=== PATIENT | male | born 1980 | race American Indian/Alaskan Native ===

== ENCOUNTER 2020-06-05 12:27 | Emergency (ER) | payer MEDICARE ==
[2020-06-05 12:46] VITALS: BP 115/64
--- NOTE | 2020-06-05 13:19 | Emergency Department Report ---
- General Chief complaint: Skin Rash Stated complaint: FACIAL BREAKOUT Time Seen by Provider: 06/05/20 12:54 Source: patient Mode of arrival: Ambulatory Limitations: No Limitations - History of Present Illness Initial comments: Patient is a 40-year-old male presents emergency room complaints of a rash to the left side of his face that began 3 days ago. He states that he put alcohol on the face. He denies ever having in the past. He denies any fever, drainage, difficulty swallowing, itching. He denies any known allergies. Has a past medical history of HIV and has not been on his antivirals for 6 months due to lack of insurance. No allergies to medications. - Related Data Home Medications Medication Instructions Recorded Confirmed Last Taken Abacavir/Dolutegravir/Lamivudi 1 each PO QDAY 05/17/16 05/17/16 05/17/16 11:00 [Triumeq Tablet] Darunavir/Cobicistat (Nf) 1 each PO QDAY 05/17/16 05/17/16 05/17/16 11:00 [Prezcobix 800 mg-150 mg Tablet] Previous Rx's Medication Instructions Recorded Last Taken Type Acetaminophen/Codeine [Tylenol #3] 1 tab PO Q8H PRN #15 tablet 05/17/16 Unknown Rx Amoxicillin/K Clav Tab [Augmentin 1 tab PO Q12HR #20 tab 05/17/16 Unknown Rx 875 mg] Benzocaine [Oral Pain Relief] 9.35 gm MM Q8H #1 gel..gram. 05/17/16 Unknown Rx Chlorhexidine Mouthwash [Peridex] 118 ml MM BID #1 bottle 05/17/16 Unknown Rx Ibuprofen [Motrin] 600 mg PO Q8H PRN #30 tablet 05/17/16 Unknown Rx Mupirocin [Bactroban 2% OINT] 1 applic TP TID #1 tube 06/05/20 Unknown Rx Naproxen [EC-Naprosyn] 500 mg PO BID PRN #14 tablet. 06/05/20 Unknown Rx Valacyclovir HCl [Valacyclovir] 1,000 mg PO TID 7 Days #21 tablet 06/05/20 Unknown Rx traMADoL [Ultram 50 MG tab] 50 mg PO Q6HR PRN #10 tablet 06/05/20 Unknown Rx Allergies Allergy/AdvReac Type Severity Reaction Status Date / Time No Known Allergies Allergy Verified 06/05/20 12:41 Abscess Boil HPI - HPI Chief Complaint: Skin Rash Stated Complaint: FACIAL BREAKOUT Time Seen by Provider: 06/05/20 12:54 Home Medications: Home Medications Medication Instructions Recorded Confirmed Last Taken Abacavir/Dolutegravir/Lamivudi 1 each PO QDAY 05/17/16 05/17/16 05/17/16 11:00 [Triumeq Tablet] Darunavir/Cobicistat (Nf) 1 each PO QDAY 05/17/16 05/17/16 05/17/16 11:00 [Prezcobix 800 mg-150 mg Tablet] Previous Rx's Medication Instructions Recorded Last Taken Type Acetaminophen/Codeine [Tylenol #3] 1 tab PO Q8H PRN #15 tablet 05/17/16 Unknown Rx Amoxicillin/K Clav Tab [Augmentin 1 tab PO Q12HR #20 tab 05/17/16 Unknown Rx 875 mg] Benzocaine [Oral Pain Relief] 9.35 gm MM Q8H #1 gel..gram. 05/17/16 Unknown Rx Chlorhexidine Mouthwash [Peridex] 118 ml MM BID #1 bottle 05/17/16 Unknown Rx Ibuprofen [Motrin] 600 mg PO Q8H PRN #30 tablet 05/17/16 Unknown Rx Mupirocin [Bactroban 2% OINT] 1 applic TP TID #1 tube 06/05/20 Unknown Rx Naproxen [EC-Naprosyn] 500 mg PO BID PRN #14 tablet. 06/05/20 Unknown Rx Valacyclovir HCl [Valacyclovir] 1,000 mg PO TID 7 Days #21 tablet 06/05/20 Unknown Rx traMADoL [Ultram 50 MG tab] 50 mg PO Q6HR PRN #10 tablet 06/05/20 Unknown Rx Allergies/Adverse Reactions: Allergies Allergy/AdvReac Type Severity Reaction Status Date / Time No Known Allergies Allergy Verified 06/05/20 12:41 ED Review of Systems ROS: Stated complaint: FACIAL BREAKOUT Other details as noted in HPI Comment: All other systems reviewed and negative ED Past Medical Hx - Past Medical History Hx HIV: Yes - Surgical History Past Surgical History?: No - Social History Smoking Status: Current Every Day Smoker Substance Use Type: Alcohol - Medications Home Medications: Home Medications Medication Instructions Recorded Confirmed Last Taken Type Abacavir/Dolutegravir/Lamivudi 1 each PO QDAY 05/17/16 05/17/16 05/17/16 11:00 History [Triumeq Tablet] Acetaminophen/Codeine [Tylenol #3] 1 tab PO Q8H PRN #15 tablet 05/17/16 Unknown Rx Amoxicillin/K Clav Tab [Augmentin 1 tab PO Q12HR #20 tab 05/17/16 Unknown Rx 875 mg] Benzocaine [Oral Pain Relief] 9.35 gm MM Q8H #1 gel..gram. 05/17/16 Unknown Rx Chlorhexidine Mouthwash [Peridex] 118 ml MM BID #1 bottle 05/17/16 Unknown Rx Darunavir/Cobicistat (Nf) 1 each PO QDAY 05/17/16 05/17/16 05/17/16 11:00 History [Prezcobix 800 mg-150 mg Tablet] Ibuprofen [Motrin] 600 mg PO Q8H PRN #30 tablet 05/17/16 Unknown Rx Mupirocin [Bactroban 2% OINT] 1 applic TP TID #1 tube 06/05/20 Unknown Rx Naproxen [EC-Naprosyn] 500 mg PO BID PRN #14 tablet.dr 06/05/20 Unknown Rx Valacyclovir HCl [Valacyclovir] 1,000 mg PO TID 7 Days #21 tablet 06/05/20 Unknown Rx traMADoL [Ultram 50 MG tab] 50 mg PO Q6HR PRN #10 tablet 06/05/20 Unknown Rx ED Physical Exam - General Limitations: No Limitations General appearance: alert, in no apparent distress - Head Head exam: Present: atraumatic, normocephalic - Eye Eye exam: Present: normal appearance - ENT ENT exam: Present: mucous membranes moist - Respiratory Respiratory exam: Absent: respiratory distress, accessory muscle use - Neurological Exam Neurological exam: Present: alert, oriented X3 - Psychiatric Psychiatric exam: Present: normal affect, normal mood - Skin Skin exam: Present: other (maculopapular rash with vesicles present to the left side of the face in a dermatomal distribution, no involvement of the ear canal or TM, no involvement inside of the nose, there are a few pustules ) ED Course Vital Signs 06/05/20 12:45 Temperature 98.2 F Pulse Rate 74 Respiratory 18 Rate Blood Pressure 115/64 [Left] O2 Sat by Pulse 100 Oximetry ED Medical Decision Making - Medical Decision Making Patient is a 40-year-old male presents emergency room complaints of a rash to the left side of his face that began 3 days ago. He states that he put alcohol on the face. He denies ever having in the past. He denies any fever, drainage, difficulty swallowing, itching. He denies any known allergies. Has a past medical history of HIV and has not been on his antivirals for 6 months due to lack of insurance. No allergies to medications. vitals are normal. on exam: maculopapular rash with vesicles present to the left side of the face in a dermatomal distribution, no involvement of the ear canal or TM, no involvement inside of the nose, there are a few pustules. Examination appears consistent with shingles outbreak. There is a few small pustules which could possibly be mild secondary skin irritation, no signs of facial cellulitis or abscess. Patient given prescription for naproxen, tramadol, Valacyclovir, mupirocin ointment. Advised patient to follow-up with primary care doctor. Discussed the importance of following up with infectious disease/HIV clinic and getting back on his antivirals. Advised patient Please use medication as prescribed. Please follow-up with your primary care doctor. Please follow-up with HIV clinic/health department to get back on her antivirals. Please discuss with your primary care doctor about the shingles vaccine. Return to emergency room for any new or worsening symptoms. Critical care attestation.: If time is entered above; I have spent that time in minutes in the direct care of this critically ill patient, excluding procedure time. ED Disposition Clinical Impression: Shingles Qualifiers: Herpes zoster complications: without complications Qualified Code(s): B02.9 - Zoster without complications Disposition: DC-01 TO HOME OR SELFCARE Is pt being admited?: No Does the pt Need Aspirin: No Condition: Stable Instructions: Shingles, [id number] Additional Instructions: Please use medication as prescribed. Please follow-up with your primary care doctor. Please follow-up with HIV clinic/health department to get back on her antivirals. Please discuss with your primary care doctor about the shingles vaccine. Return to emergency room for any new or worsening symptoms. [facility] [place] [address], [place] [address] Hours: Closed ? Opens 10AM Mon [facility] [place] Address: [address], [place] [address] [facility] Address: [address], [place] [id number] [facility] Address: [address], [place] [address] [facility] Address: [address], [place] [address] Prescriptions: Mupirocin [Bactroban 2% OINT] 1 applic TP TID #1 tube Naproxen [EC-Naprosyn] 500 mg PO BID PRN #14 tablet. PRN Reason: pain traMADoL [Ultram 50 MG tab] 50 mg PO Q6HR PRN #10 tablet PRN Reason: Pain , Severe (7-10) Valacyclovir HCl [Valacyclovir] 1,000 mg PO TID 7 Days #21 tablet Referrals: ADRIANNE CABELLO MD [Staff Physician] - 3-5 Days [facility] [Provider Group] - 3-5 Days [facility], [LAB/CONTRACT] - 3-5 Days KATARINA ROUSSEAU MD [Staff Physician] - 3-5 Days [facility], [Primary Care Provider] - 3-5 Days Time of Disposition: 13:16 Print Language: URUGUAYAN
== END 2020-06-05 13:58 | disposition home or self-care (01) ==
LOC: ED 12:27
DX: B02.9 Zoster without complications (principal); F17.200 Nicotine dependence, unspecified, uncomplicated; Z21 Asymptomatic human immunodeficiency virus [HIV] infection status; Z79.2 Long term (current) use of antibiotics; Z79.899 Other long term (current) drug therapy
CPT/HCPCS: 99282

== ENCOUNTER 2020-07-04 08:19 | Emergency (ER) | payer SELFPAY ==
[2020-07-04 09:03] VITALS: BP 116/87
--- NOTE | 2020-07-04 09:16 | Emergency Department Report ---
ED Male HPI - General Chief complaint: Urogenital-Male Stated complaint: PENIS PAIN Time Seen by Provider: 07/04/20 09:11 Source: patient Mode of arrival: Ambulatory Limitations: No Limitations - History of Present Illness Initial comments: 40-year-old -[place] male that emerge department complaining of 1 week history of penile discharge of the yellowish color with some tingling and occasional burning which was earlier on in the process. Reports no fever, chills, sweats no chest pain, no palpitations. No no hematuria no testicular swelling Radiation: none Severity: mild Quality: burning, dull Consistency: constant Improves with: none Worsens with: none new medication discharge. denies: urinary retention, blood in urine, nausea/vomiting, incontinence - Related Data Sexually active: Yes Home Medications Medication Instructions Recorded Confirmed Last Taken Abacavir/Dolutegravir/Lamivudi 1 each PO QDAY 05/17/16 05/17/16 05/17/16 11:00 [Triumeq Tablet] Darunavir/Cobicistat (Nf) 1 each PO QDAY 05/17/16 05/17/16 05/17/16 11:00 [Prezcobix 800 mg-150 mg Tablet] Previous Rx's Medication Instructions Recorded Last Taken Type Acetaminophen/Codeine [Tylenol #3] 1 tab PO Q8H PRN #15 tablet 05/17/16 Unknown Rx Amoxicillin/K Clav Tab [Augmentin 1 tab PO Q12HR #20 tab 05/17/16 Unknown Rx 875 mg] Benzocaine [Oral Pain Relief] 9.35 gm MM Q8H #1 gel..gram. 05/17/16 Unknown Rx Chlorhexidine Mouthwash [Peridex] 118 ml MM BID #1 bottle 05/17/16 Unknown Rx Ibuprofen [Motrin] 600 mg PO Q8H PRN #30 tablet 05/17/16 Unknown Rx Mupirocin [Bactroban 2% OINT] 1 applic TP TID #1 tube 06/05/20 Unknown Rx Naproxen [EC-Naprosyn] 500 mg PO BID PRN #14 tablet. 06/05/20 Unknown Rx Valacyclovir HCl [Valacyclovir] 1,000 mg PO TID 7 Days #21 tablet 06/05/20 Unknown Rx traMADoL [Ultram 50 MG tab] 50 mg PO Q6HR PRN #10 tablet 06/05/20 Unknown Rx Cefixime [Suprax] 800 mg PO ONCE #2 capsule 07/04/20 Unknown Rx Doxycycline Hyclate 100 mg PO BID #14 tablet. 07/04/20 Unknown Rx Allergies Allergy/AdvReac Type Severity Reaction Status Date / Time No Known Allergies Allergy Verified 06/05/20 12:41 ED Review of Systems ROS: Stated complaint: PENIS PAIN Other details as noted in HPI Comment: All other systems reviewed and negative ED Past Medical Hx - Past Medical History Previous Medical History?: Yes Hx HIV: Yes - Surgical History Past Surgical History?: No - Social History Smoking Status: Current Every Day Smoker Substance Use Type: None - Medications Home Medications: Home Medications Medication Instructions Recorded Confirmed Last Taken Type Abacavir/Dolutegravir/Lamivudi 1 each PO QDAY 05/17/16 05/17/16 05/17/16 11:00 History [Triumeq Tablet] Acetaminophen/Codeine [Tylenol #3] 1 tab PO Q8H PRN #15 tablet 05/17/16 Unknown Rx Amoxicillin/K Clav Tab [Augmentin 1 tab PO Q12HR #20 tab 05/17/16 Unknown Rx 875 mg] Benzocaine [Oral Pain Relief] 9.35 gm MM Q8H #1 gel..gram. 05/17/16 Unknown Rx Chlorhexidine Mouthwash [Peridex] 118 ml MM BID #1 bottle 05/17/16 Unknown Rx Darunavir/Cobicistat (Nf) 1 each PO QDAY 05/17/16 05/17/16 05/17/16 11:00 History [Prezcobix 800 mg-150 mg Tablet] Ibuprofen [Motrin] 600 mg PO Q8H PRN #30 tablet 05/17/16 Unknown Rx Mupirocin [Bactroban 2% OINT] 1 applic TP TID #1 tube 06/05/20 Unknown Rx Naproxen [EC-Naprosyn] 500 mg PO BID PRN #14 tablet. 06/05/20 Unknown Rx Valacyclovir HCl [Valacyclovir] 1,000 mg PO TID 7 Days #21 tablet 06/05/20 Unknown Rx traMADoL [Ultram 50 MG tab] 50 mg PO Q6HR PRN #10 tablet 06/05/20 Unknown Rx Cefixime [Suprax] 800 mg PO ONCE #2 capsule 07/04/20 Unknown Rx Doxycycline Hyclate 100 mg PO BID #14 tablet. 07/04/20 Unknown Rx ED Physical Exam - General Limitations: No Limitations General appearance: alert, in no apparent distress - Head Head exam: Present: atraumatic, normocephalic - Eye Eye exam: Present: normal appearance, PERRL, EOMI Pupils: Present: normal accommodation - ENT ENT exam: Present: normal exam, normal orophraynx, mucous membranes moist, TM's normal bilaterally - Neck Neck exam: Present: normal inspection, full ROM - Respiratory Respiratory exam: Present: normal lung sounds bilaterally. Absent: respiratory distress, wheezes, rales, rhonchi - Cardiovascular Cardiovascular Exam: Present: regular rate, normal rhythm. Absent: systolic murmur, diastolic murmur, rubs, gallop - GI/Abdominal GI/Abdominal exam: Present: soft, normal bowel sounds - Rectal Rectal exam: Present: deferred - Extremities Exam Extremities exam: Present: normal inspection, normal capillary refill - Back Exam Back exam: Present: normal inspection. Absent: CVA tenderness (R), CVA tenderness (L) - Neurological Exam Neurological exam: Present: alert, oriented X3, CN II-XII intact, normal gait - Psychiatric Psychiatric exam: Present: normal affect, normal mood. Absent: anxious, flat affect - Skin Skin exam: Present: warm, dry, intact, normal color. Absent: rash ED Course Vital Signs 07/04/20 09:02 Temperature 98.7 F Pulse Rate 69 Respiratory 20 Rate Blood Pressure 116/87 O2 Sat by Pulse 100 Oximetry ED Medical Decision Making - Medical Decision Making This patient presents to the emergency department with symptoms consistent with acute uncomplicated cystitis or STD. No systemic symptoms. Not septic. She is well-appearing. Low suspicion for acute pyelonephritis given the lack of fever, CVA tenderness, or systemic features. Low suspicion for for kidney stone or infected stone. Not in age range for and her history and and presentation are complicated. No no indications for labs or imaging at this time. Will cover Mr. Art for chlamydia and gonorrhea as well as trichomonas Critical care attestation.: If time is entered above; I have spent that time in minutes in the direct care of this critically ill patient, excluding procedure time. ED Disposition Clinical Impression: Dysuria, Possible exposure to STD Disposition: DC-01 TO HOME OR SELFCARE Is pt being admited?: No Does the pt Need Aspirin: No Condition: Stable Instructions: Safe Sex, Dysuria, Chlamydia, Male, Gonorrhea Prescriptions: Doxycycline Hyclate 100 mg PO BID #14 tablet. Cefixime [Suprax] 800 mg PO ONCE #2 capsule Referrals: [facility] [Provider Group] - 3-5 Days
== END 2020-07-04 09:39 | disposition home or self-care (01) ==
LOC: ED 08:19
DX: R30.0 Dysuria (principal); F17.200 Nicotine dependence, unspecified, uncomplicated; Z21 Asymptomatic human immunodeficiency virus [HIV] infection status; Z20.2 Contact with and (suspected) exposure to infections with a predominantly sexual mode of transmission; Z79.899 Other long term (current) drug therapy
CPT/HCPCS: 99282